=== PATIENT | male | born 1995 | race Caucasian/White ===

== ENCOUNTER 2021-03-27 19:10 | Emergency (ER) | payer OTHER, MEDICARE, MEDICAID, SELFPAY ==
[2018-10-02 09:03] VITALS: BMI 37.3
[2021-03-27 19:11] VITALS: BP 134/86; PULSE 84; RESP 15; TEMP 36.8; O2SAT 96; BMI 35.2
--- NOTE | 2021-03-27 20:50 | RAD_ITS ---
STUDY: X-RAY - RIGHT FEMUR REASON FOR STUDY: Male, 26 years old. Fall TECHNIQUE: 4 view(s) of the femur. COMPARISON: None. FINDINGS: Normal visualized femur. Normal visualized soft tissue structure. RAD/Femur Min 2 Views IMPRESSION: Normal x-ray examination of the femur. Electronically Signed: Anuel Feldman MD at 21:23 EDT Tel , Service support ,
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
--- NOTE | 2021-03-27 20:56 | RAD_ITS ---
STUDY: X-RAY - PELVIS REASON FOR EXAM: Male, 26 years old. Fall TECHNIQUE: One view of the pelvis was obtained. COMPARISON: None. FINDINGS: No acute fracture, dislocation or osseous destruction. No significant joint space narrowing. No significant productive changes. No significant soft tissue swelling. Metallic densities inferior to the right pubic symphysis may be external to the patient. IMPRESSION: Intact pelvis. Electronically Signed: Anuel Feldman MD at 21:27 EDT Tel , Service support , RAD/Pelvis 1 or 2 Views
[2021-03-27] MEDS: Ibuprofen 400 MG Tablet 800 MG PO (20:59)
== END 2021-03-27 21:50 | disposition home or self-care (01) ==
PROVIDERS: Emergency Provider Emergency Medicine; PCP Internal Medicine
DX: S70.01XA Contusion of right hip, initial encounter (principal); V19.9XXA Pedal cyclist (driver) (passenger) injured in unspecified traffic accident, initial encounter; Y93.55 Activity, bike riding; Y92.9 Unspecified place or not applicable; Y99.9 Unspecified external cause status; M54.9 Dorsalgia, unspecified; G89.29 Other chronic pain; Q05.4 Unspecified spina bifida with hydrocephalus; N31.9 Neuromuscular dysfunction of bladder, unspecified; G62.9 Polyneuropathy, unspecified; K21.9 Gastro-esophageal reflux disease without esophagitis; F10.21 Alcohol dependence, in remission; Z79.899 Other long term (current) drug therapy; Z87.891 Personal history of nicotine dependence
CPT/HCPCS: 72170; 73552; 99284

== ENCOUNTER → 2021-06-15 09:33 | Outpatient (CLI) | payer OTHER, MEDICARE, MEDICAID, SELFPAY ==
[2021-06-15 12:13] LABS: Absolute Lymphocyte Count 1.51 X10^3/uL (0.83-4.51); Absolute Neutrophil Count 2.8 X10^3/uL (2.0-7.7); Basophil# 0.02 X10^3/uL; Basophil% 0.4 % (0-1); Hematocrit 43.2 % (40-54); Hemoglobin 14.2 g/dL (13.0-16.5); Lymphocyte # 1.51 X10^3/ul (0.83-4.51); Lymphocyte % 30.2 % (19-41); Mean Corp Hgb Conc 32.9 g/dL (32-36); Mean Corpuscular Volume 91.3 fL (80-94); Mean Platelet Vol. 9.9 fl (6.2-12.0); Monocyte# 0.46 X10^3/uL; Monocyte% 9.2 % (0-10); NRBC Flagged by Analyzer 0 % (0-5); Neutrophil # 2.79 X10^3/uL (2.7-7.7); Neutrophil % 55.8 % (47-70); Platelet Count 351 K/mm3 (150-450); RBC Distribution Width CV 12.1 % (11.6-14.6); RBC Distribution Width SD 40.1 fl (35.1-43.9); Red Blood Count 4.73 M/mm3 (4.6-6.2)
[2021-06-15 12:28] LABS: ALB/GLOB Ratio 1.1 RATIO (0.9-2.4); AST(SGOT) 30 U/L (15-37); Alanine Aminotransfer ALT/SGPT 84 U/L (16-61); Albumin, Serum 3.8 g/dL (3.2-5.0); Alkaline Phosphatase 89 U/L (45-117); Anion Gap 6 (5-15); BUN 13 mg/dL (7-18); BUN/Creat Ratio 16.4 RATIO (10-20); Calcium,Total 9.1 mg/dL (8.5-10.1); Chloride 105 mmol/L (98-107); Cholesterol 156 mg/dL (200); Creatinine, Serum 0.79 mg/dL (0.70-1.30); EST Glomerular Filtration Rate 127 mL/min (>60); Est Glom Filt Rate - Afr Amer 153 mL/min (>60); Globulin 3.4 g/dL (2.2-4.2); Glucose 98 mg/dL (74-106); High Density Lipoprotein 34 mg/dL; Potassium 4.2 mmol/L (3.5-5.1); Protein, Total 7.2 g/dL (6.4-8.2); Sodium Level 139 mmol/L (136-145); Triglycerides 216 mg/dL; Very Low Density Lipoprotein 43 mg/dL (5-40)
[2021-06-15 12:59] LABS: Hemoglobin A1c 4.8 % (3.8-5.6)
== END ==
PROVIDERS: PCP Internal Medicine; Referring Provider Internal Medicine; Visit Provider Internal Medicine
DX: E66.9 Obesity, unspecified (principal); I10 Essential (primary) hypertension
CPT/HCPCS: 36415; 80053; 80061; 83036; 85025

== ENCOUNTER 2021-07-02 16:00 | Outpatient (RCR) | payer OTHER, MEDICARE, MEDICAID, SELFPAY ==
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
--- NOTE | 2021-09-10 14:05 | HP.PT.NRP ---
YVONNE GARCIA was seen in my office for initial evaluation on 06/12/21. The following Plan of Care was established for this patient: Initial Frequency: 2-3x /Week Initial Duration: 4-6 Weeks Patient/Client Instruction: Educate patient on: Condition, Plan of Care, Risk Factors For the Purpose of:: To improve self management Therapeutic Exercise to Include: Strength training, Endurance training, Balance training, Coordination, Body mechanics, Postural training, Gait and locomotor training, Neuromotor development, Dynamic Lumbar Stabilization For the Purpose of:: To improve muscle performance and motor function, To increase tolerance to activity/condition/position, To improve ability of physical actions for home/community/work/leisure, To improve gait and locomotor functions, To improve safety This patient was last seen in our office 07/02/21. Pertinent comments regarding their Physical therapy will appear below: This patient has not returned to Physical Therapy and is appropriate to return to MD for further follow-up as needed. At this point I will be discontinuing this patient from physical therapy. I would be happy to see this patient again in the future if found appropriate by the physician. Thank you! Cadence Browning, PT, Cert MDT Balance/Gait/Functional tests - Balance/Special Test Scores Lower Extremity Functional Score: 42
== END 2021-07-02 19:00 | disposition home or self-care (01) ==
LOC: PT 16:00
PROVIDERS: PCP Internal Medicine
DX: Q05.9 Spina bifida, unspecified (principal)
CPT/HCPCS: 97110; 97162

== ENCOUNTER 2021-08-29 00:42 | Emergency (ER) | payer OTHER, MEDICARE, MEDICAID, SELFPAY ==
[2021-08-29 00:43] VITALS: BP 140/100; PULSE 99; RESP 20; TEMP 36.6; O2SAT 100; BMI 46.1
--- NOTE | 2021-08-29 01:31 | CT_ITS ---
STUDY: CT ABDOMEN AND PELVIS WITH CONTRAST REASON FOR EXAM: Male, 26 years old. abdominal pain. History of spina bifida with neurogenic bladder. Self catheterizes. Reportedly the appendix surgically altered. History of multiple surgeries. RADIATION DOSAGE (If Supplied By Facility): CTDIvol = ( 11.74 ) mGy, DLP = ( 1343.36 ) mGycm TECHNIQUE: Transaxial images were obtained from the dome of the diaphragm to the symphysis pubis with oral contrast. 100 mL Isovue 370 intravenous contrast was administered. Sagittal and coronal images were reconstructed. Individualized dose optimization techniques were used for this CT. COMPARISON: None. FINDINGS: The visualized lung bases are unremarkable. The visualized portions of the heart are within normal limits. Normal liver. Normal gallbladder and extrahepatic biliary system. Normal spleen. Normal pancreas. Normal bilateral adrenal glands. Normal right kidney. 1.3 cm cyst superior pole left kidney which does not represent a simple cyst. Normal visualized stomach. Normal small intestine. Normal colon. The appendix is visualized and appears normal. Normal abdominal aorta. Normal inferior vena cava. Normal retroperitoneum. No intra-abdominal free air. Small amount of free fluid in the right inferior abdomen with moderate free fluid in the inferior pelvis. Distal aspect of a right ventriculoperitoneal shunt terminates in the right lower abdomen. Thickened bladder wall suggestive of a neurogenic bladder described in the history. medical cost consultant in the region of the prostate gland with the catheter located in right inguinal region. Normal abdominal wall. Spinal canal and the lower lumbar sacral spine. Absence of the posterior elements in the lower lumbar sacral spine. CT/Abdomen/Pelvis WITH Contrast IMPRESSION: Fluid in the inferior abdomen and pelvis which may be related to infection or inflammation. Comparison to prior studies would be helpful when available. Thickened bladder wall compatible with history of neurogenic bladder. Cystitis is a consideration. No intra-abdominal free air. Cyst superior pole left kidney. Correlate with prior studies to assess stability. Findings of spina bifida. Electronically Signed: Mane Rossi MD at 3:58 EST , Service support ,
--- NOTE | 2021-08-29 01:33 | ED.VIS.GI ---
HPI HPI - GI History of Present Illness Chief Complaint: Constipation Narrative Narrative: 26-year-old male presenting with abdominal pain. He describes it is more central in his abdomen. Patient has a history of spina bifida and neurogenic bladder and bowel. He has a history of constipation and alternates with diarrhea. He recently switched from [employer] to Dr. Rodriguez who is going to a colonoscopy in the next month. Patient states that he does not typically have this much pain and this woke him up from sleep. He states he got nauseous and a little bit sweaty which which resolved. He now has just the pain which is also improving. He states he has not had a significant bowel movement in 2 days but did have some diarrhea earlier which is not atypical. He has not had a fever. He states he is had over 20 abdominal surgeries and a he has a Mercado stoma in his abdomen that he uses to flush his bowel to help him defecate this was created by using his appendix. He does defecate rectally. Patient has another stoma called a Mitrofanoff which is typically made with appendiceal tissue however due to his previous stoma another piece of bowel was used in the tissue to create a conduit from the stoma to the bladder. He does self cath here. But states he gets very confused when he has urinary tract infections and he does not feel that way. [facility] Medical History Alcoholism Anxiety and depression Chronic back pain Chronic constipation GERD (gastroesophageal reflux disease) Hydrocephalus Myelomeningocele Neurogenic bladder Neuropathy Right foot pain Spina bifida Home Medications Handicap Placard #1 ea 10/02/18 [Rx Last Taken Unknown] docusate sodium 100 mg capsule 100 mg PO BID 10/02/18 [History Last Taken Unknown] multivitamin 1 cap PO DAILY 10/02/18 [History Last Taken Unknown] nitrofurantoin macrocrystal 50 mg capsule 50 mg PO QHS 10/02/18 [History Last Taken Unknown] oxybutynin 3.9 mg/24 hr semiweekly transdermal patch 1 patch TRANSDERMAL 2XW 10/02/18 [History Last Taken Unknown] polyethylene glycol 3350 17 gram/dose oral powder 17 g PO DAILY g 10/02/18 [History Last Taken Unknown] sildenafil 25 mg tablet 25 mg PO DAILY PRN 10/02/18 [History Last Taken Unknown] baclofen 20 mg tablet 20 mg PO BID 06/15/21 [History Last Taken Unknown] escitalopram oxalate 10 mg tablet 10 mg PO DAILY #90 tab 06/15/21 [Rx Last Taken Unknown] lactobacillus combination no.4 3 billion cell capsule 3,000 mmu cells PO DAILY 06/15/21 [History Last Taken Unknown] magnesium 200 mg tablet 200 mg PO DAILY 06/15/21 [History Last Taken Unknown] melatonin 5 mg capsule 5 mg PO DAILY 06/15/21 [History Last Taken Unknown] zinc 50 mg tablet 50 mg PO DAILY 06/15/21 [History Last Taken Unknown] metoprolol succinate 50 mg tablet,extended release 24 hr 50 mg PO DAILY #60 tab 08/27/21 [Rx Last Taken Unknown] ciprofloxacin 250 mg PO Q12H 7 Days #35 ml 08/29/21 [Rx Last Taken Unknown] losartan 50 mg PO DAILY 08/29/21 [History Last Taken Unknown] Allergy/AdvReac Type Severity Reaction Status Date / Time lactose Allergy Mild Diarrhea Verified 08/29/21 00:50 cefdinir [From Omnicef] Allergy unknown Verified 08/29/21 00:50 cephalexin [From Keflex] Allergy Unknown Verified 08/29/21 00:50 latex Allergy Unknown Verified 08/29/21 00:50 morphine Allergy Unknown Verified 08/29/21 00:50 Family History Father Hypertension Heart disease Arthritis Surgical History bilateral hydocele repair closure of the spine cystourethroscopy estropia repair H/O hernia repair Mercado Stoma mitrofanoff placement of [place] reservoir removal of thiersch wire revision of shunt 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 Status post implantation of artificial urinary sphincter thiersch wire replacement [place] teeth extracted Social History Smoking Status: Never smoker Tobacco: How many years used: 1 how long ago did patient quit smokin alcohol intake: current alcohol intake frequency: holidays/special occasions only what type of physical activity do you participate in: aerobics and weight training ROS ROS ED Constitutional Constitutional ED: Reports sweats; Denies chills or fever(s) ENT ENT ED: Denies rhinorrhea Cardiovascular Cardiovascular: Denies chest pain or palpitations Respiratory/Chest Respiratory/Chest: Denies cough or dyspnea Gastrointestinal Gastrointestinal: Reports abdominal pain, constipation, diarrhea and nausea Genitourinary Genitourinary ED: Denies dysuria or hematuria Musculoskeletal Musculoskeletal: Denies arthralgias or myalgias Neurologic Neurologic: Denies headache(s) or weakness EXAM Physical Exam Const Vital Signs: 08/29/21 00:43 08/29/21 02:38 08/29/21 05:36 Temperature 97.8 F Temperature Source Oral Pulse Rate 99 97 105 H Respiratory Rate 20 H 16 18 Blood Pressure 140/100 H 122/83 H 118/70 Blood Pressure Mean 113 96 86 Pulse Ox 100 95 96 Oxygen Delivery Method Room Air Room Air Room Air Positive obese General Appearance ED: NAD; Negative for pallor Nutritional Appearance: obese HEENT Reports moist mucous membranes normocephalic and atraumatic Eyes PERRL and EOMs intact bilaterally Resp clear to auscultation bilaterally GI GI Narrative: Generalized abdominal tenderness. Neuro no sensory deficits noted Sensorium / Orientation: alert, oriented to person, oriented to place and oriented to time Motor Exam: strength 5/5 throughout Psych mental status grossly normal and thought process normal Skin General Skin Exam: Negative for jaundice or pallor MDM MDM MDM Narrative Medical decision making narrative: Patient's CBC does not show any leukocytosis. Hemoglobin hematocrit are stable. Electrolytes are normal as well as LFTs and lipase. His creatinine is 2.18 which was 0.79 2 months ago. This does not appear to be prerenal azotemia. Patient's urinalysis is positive for infection. Patient is allergic to cephalosporins. He states he usually gets Bactrim but I will hold tested YANELI. He states that Cipro has worked for him in the past. He will be given an IV dose of this. Urine is sent for culture. CT of the abdomen pelvis with p.o. and IV contrast does show some fluid in the pelvis which is nonspecific for infection or inflammation but could be either. Given that he has no leukocytosis and his vital signs are stable it is unclear what to make of this. The patient has no previous studies to compare in our system. He was initially given a liter of IV fluids. Since he had a CT of the pelvis with IV contrast I will give another liter of fluids and recheck his creatinine. Recheck of the patient's creatinine shows that it is now 1.35. Patient was discussed with Dr. Erwin. He will put on Cipro outpatient. I did discuss with her I sent a urine culture. She will recheck his creatinine. Patient is also to follow-up with Dr. Rodriguez as he has missed 2 visits with him. Patient is discharged home in stable condition. Impression: 1. Abdominal pain 2. Bladder infection 3. Constipation Lab Data Labs: Laboratory Results - last 24 hr 08/29/21 08/29/21 08/29/21 01:42 01:42 02:58 WBC 9.2 RBC 4.82 Hgb 14.6 Hct 43.7 MCV 90.7 MCH 30.3 MCHC 33.4 RDW Std Deviation 38.7 RDW Coeff of Levi 11.7 Plt Count 345 MPV 9.3 Immature Gran % (Auto) 0.200 Neut % (Auto) 79.9 H Lymph % (Auto) 10.8 L [place] % (Auto) 7.5 Eos % (Auto) 1.4 Baso % (Auto) 0.2 Absolute Neuts (auto) 7.4 Absolute Lymphs (auto) 1.00 Nucleated RBC % 0 Sodium 141 Potassium 4.3 Chloride 107 Carbon Dioxide 28.0 Anion Gap 6 BUN 20 H Creatinine 2.18 H Estim Creat Clear Calc 55.17 Est GFR (MDRD) Af Amer 47 L Est GFR (MDRD) Non-Af 39 L BUN/Creatinine Ratio 9.2 L Glucose 126 H Calcium 8.9 Total Bilirubin 1.00 AST 32 ALT 85 H Alkaline Phosphatase 85 Total Protein 7.2 Albumin 3.6 Globulin 3.6 Albumin/Globulin Ratio 1.0 Lipase 56 L Urine Color Yellow Urine Clarity Cloudy Urine pH 5.0 Ur Specific [place] 1.025 Urine Protein 30 H Urine Glucose (UA) Normal Urine Ketones 5 H Urine Occult Blood 25 H Urine Nitrite Positive H Urine Bilirubin Negative Urine Urobilinogen 1 H Ur Leukocyte Esterase 500 H Urine RBC 10-25 SEEN Urine WBC >100 SEEN Ur Squamous Epith Cells 0 SEEN Urine Bacteria 3+ Hyaline Casts 0-5 SEEN Urine Mucus RARE 08/29/21 06:09 WBC RBC Hgb Hct MCV MCH MCHC RDW Std Deviation RDW Coeff of Levi Plt Count MPV Immature Gran % (Auto) Neut % (Auto) Lymph % (Auto) [place] % (Auto) Eos % (Auto) Baso % (Auto) Absolute Neuts (auto) Absolute Lymphs (auto) Nucleated RBC % Sodium 139 Potassium 4.0 Chloride 109 H Carbon Dioxide 24.0 Anion Gap 6 BUN 19 H Creatinine 1.35 H Estim Creat Clear Calc 89.09 Est GFR (MDRD) Af Amer 83 Est GFR (MDRD) Non-Af 68 BUN/Creatinine Ratio 14.1 Glucose 114 H Calcium 8.1 L Total Bilirubin AST ALT Alkaline Phosphatase Total Protein Albumin Globulin Albumin/Globulin Ratio Lipase Urine Color Urine Clarity Urine pH Ur Specific [place] Urine Protein Urine Glucose (UA) Urine Ketones Urine Occult Blood Urine Nitrite Urine Bilirubin Urine Urobilinogen Ur Leukocyte Esterase Urine RBC Urine WBC Ur Squamous Epith Cells Urine Bacteria Hyaline Casts Urine Mucus Radiography Diagnostic Testing: Clinical Impression(s) from Imaging Studies Abdomen/Pelvis CT 08/29/21 01:31 IMPRESSION: Fluid in the inferior abdomen and pelvis which may be related to infection or inflammation. Comparison to prior studies would be helpful when available. Thickened bladder wall compatible with history of neurogenic bladder. Cystitis is a consideration. No intra-abdominal free air. Cyst superior pole left kidney. Correlate with prior studies to assess stability. Findings of spina bifida. Electronically Signed: Mane Rossi MD at 3:58 EST , Service support , Discharge Plan Triage Chief Complaint: Constipation ED Provider: Jacoby Griffin Dx/Rx/DC Orders Instructions: ED Bladder Infection, Male (Adult), ED Abdominal Pain Unkn Cause Male... Prescriptions: New ciprofloxacin 500 mg/5 mL suspension,microcapsule recon 250 mg PO Q12H 7 Days Qty: 35 RF: 0 No Action polyethylene glycol 3350 [Miralax] 17 gram/dose powder 17 g PO DAILY RF: 0 nitrofurantoin macrocrystal [Macrodantin] 50 mg capsule 50 mg PO QHS RF: 0 multivitamin capsule capsule 1 cap PO DAILY RF: 0 Oxytrol 3.9 mg/24 hr patch semiweekly 1 patch Transdermal 2XW RF: 0 docusate sodium [Colace] 100 mg capsule 100 mg PO BID RF: 0 sildenafil [Viagra] 25 mg tablet 25 mg PO DAILY PRN (Reason: other) RF: 0 (DME) Handicap Placard Qty: 1 RF: 0 baclofen 20 mg tablet 20 mg PO BID RF: 0 melatonin 5 mg capsule 5 mg PO DAILY RF: 0 zinc 50 mg tablet 50 mg PO DAILY RF: 0 Probiotic 3 billion cell capsule 3,000 mmu cells PO DAILY RF: 0 magnesium 200 mg tablet 200 mg PO DAILY RF: 0 escitalopram oxalate 10 mg tablet 10 mg PO DAILY Qty: 90 RF: 3 metoprolol succinate 50 mg tablet extended release 24 hr 50 mg PO DAILY Qty: 60 RF: 1 losartan 50 mg tablet 50 mg PO DAILY RF: 0 Primary Care Provider: Sruthi Erwin Referrals: Sruthi Erwin MD [Primary Care Provider] - Thomas Rodriguez DO [STAFF PHYSICIAN] - Disposition Disposition: Home, Self Care
[2021-08-29] MEDS: Ketorolac 15 MG/ML Vial IV (01:44)
[2021-08-29] MEDS: 0.9% Normal Saline 1,000 ML 1000 ML IV (01:44)
[2021-08-29 01:52] LABS: Absolute Neutrophil Count 7.4 X10^3/uL (2.0-7.7); Basophil# 0.02 X10^3/uL; Basophil% 0.2 % (0-1); Eosinophil# 0.13 X10^3/uL; Eosinophils% 1.4 % (0-5); Hematocrit 43.7 % (40-54); Hemoglobin 14.6 g/dL (13.0-16.5); Lymphocyte % 10.8 % (19-41); Mean Corp Hgb Conc 33.4 g/dL (32-36); Mean Corpuscular Hgb 30.3 pg (27.0-32.0); Mean Corpuscular Volume 90.7 fL (80-94); Mean Platelet Vol. 9.3 fl (6.2-12.0); Monocyte# 0.69 X10^3/uL; Monocyte% 7.5 % (0-10); NRBC Flagged by Analyzer 0 % (0-5); Neutrophil # 7.37 X10^3/uL (2.7-7.7); Neutrophil % 79.9 % (47-70); Platelet Count 345 K/mm3 (150-450); RBC Distribution Width CV 11.7 % (11.6-14.6); RBC Distribution Width SD 38.7 fl (35.1-43.9); Red Blood Count 4.82 M/mm3 (4.6-6.2); White Blood Count 9.2 K/mm3 (4.4-11.0)
[2021-08-29 02:16] LABS: AST(SGOT) 32 U/L (15-37); Alanine Aminotransfer ALT/SGPT 85 U/L (16-61); Albumin, Serum 3.6 g/dL (3.2-5.0); Alkaline Phosphatase 85 U/L (45-117); Anion Gap 6 (5-15); BUN 20 mg/dL (7-18); BUN/Creat Ratio 9.2 RATIO (10-20); Calcium,Total 8.9 mg/dL (8.5-10.1); Chloride 107 mmol/L (98-107); Creatinine, Serum 2.18 mg/dL (0.70-1.30); EST Glomerular Filtration Rate 39 mL/min (>60); Est Glom Filt Rate - Afr Amer 47 mL/min (>60); Estimated Creatinine Clearance 55.17 ml/min; Globulin 3.6 g/dL (2.2-4.2); Glucose 126 mg/dL (74-106); Lipase 56 U/L (73-393); Potassium 4.3 mmol/L (3.5-5.1); Protein, Total 7.2 g/dL (6.4-8.2); Sodium Level 141 mmol/L (136-145)
[2021-08-29 02:38] VITALS: BP 122/83; PULSE 97; RESP 16; O2SAT 95
[2021-08-29 03:05] LABS: Squamous Epithelial Cells - UA 0 SEEN /hpf (0-5)
[2021-08-29 03:17] LABS: Color, Urine Yellow (Yellow); Glucose, Dipstick Normal (Normal); Ketone-Dipstick 5 mg/dl (Negative); Leukocyte Esterase-Dipstick 500 /ul (Negative); Nitrite-Dipstick Positive (Negative); Occult Blood-Urine 25 /ul (Negative); Protein-Dipstick 30 mg/dl (Negative); Specific Gravity, Urine 1.025 (1.002-1.030); Urine Bilirubin Dipstick Negative (Negative); Urine Clarity Cloudy (Clear); Urine Urobilinogen 1 mg/dl (Normal)
[2021-08-29 03:43] LABS: Bacteria 3+ /hpf (None Seen); Red Blood Cells-Urine 10-25 SEEN /hpf (0-5); White Blood Cells >100 SEEN /hpf (0-5)
[2021-08-29 03:44] LABS: Mucous, Urine RARE /hpf (<or=2+)
[2021-08-29 03:45] LABS: Hyaline Cast 0-5 SEEN /lpf (0-5)
[2021-08-29] MEDS: 0.9% Normal Saline 1,000 ML 250 ML IV (04:34)
[2021-08-29 05:36] VITALS: BP 118/70; PULSE 105; RESP 18; O2SAT 96
[2021-08-29] MEDS: Ciprofloxacin 400 MG/200 ML BAG 200 MG IV (06:08)
[2021-08-29 06:38] LABS: Anion Gap 6 (5-15); BUN 19 mg/dL (7-18); BUN/Creat Ratio 14.1 RATIO (10-20); Calcium,Total 8.1 mg/dL (8.5-10.1); Chloride 109 mmol/L (98-107); Creatinine, Serum 1.35 mg/dL (0.70-1.30); EST Glomerular Filtration Rate 68 mL/min (>60); Est Glom Filt Rate - Afr Amer 83 mL/min (>60); Estimated Creatinine Clearance 89.09 ml/min; Glucose 114 mg/dL (74-106); Sodium Level 139 mmol/L (136-145)
[2021-08-29 07:07] VITALS: BP 95/67; PULSE 102; RESP 16
== END 2021-08-29 07:46 | disposition home or self-care (01) ==
PROVIDERS: Emergency Provider Student in an Organized Health Care Education/Training Program; PCP Internal Medicine
DX: R10.9 Unspecified abdominal pain (principal); N30.90 Cystitis, unspecified without hematuria; K59.00 Constipation, unspecified; Q05.4 Unspecified spina bifida with hydrocephalus; N31.9 Neuromuscular dysfunction of bladder, unspecified; K21.9 Gastro-esophageal reflux disease without esophagitis; F32.A Depression, unspecified; F41.9 Anxiety disorder, unspecified; Z79.899 Other long term (current) drug therapy; Z88.1 Allergy status to other antibiotic agents
CPT/HCPCS: 74177; 80048; 80053; 81001; 83690; 85025; 87077; 87086; 87088; 87186; 96361; 96365; 96375; 99285; J7030; Q9967; A4216; J0744

== ENCOUNTER → 2021-08-30 | Outpatient (CLI) | payer OTHER, MEDICARE, MEDICAID, SELFPAY | END | disposition home or self-care (01) | LOC: LABSPEC 08:20 | PROVIDERS: PCP Internal Medicine; Referring Provider Physician Assistant; Visit Provider Physician Assistant | DX: Z11.52 Encounter for screening for COVID-19 (principal) | CPT/HCPCS: 87635; U0005; U0003 ==

== ENCOUNTER 2021-10-17 14:41 | Outpatient (CLI) | payer OTHER, MEDICARE, MEDICAID, SELFPAY ==
[2021-10-17 16:51] LABS: ALB/GLOB Ratio 0.9 RATIO (0.9-2.4); AST(SGOT) 11 U/L (15-37); Alanine Aminotransfer ALT/SGPT 35 U/L (16-61); Albumin, Serum 3.5 g/dL (3.2-5.0); Alkaline Phosphatase 103 U/L (45-117); Anion Gap 7 (5-15); BUN 16 mg/dL (7-18); BUN/Creat Ratio 17.6 RATIO (10-20); Calcium,Total 9.3 mg/dL (8.5-10.1); Chloride 107 mmol/L (98-107); Creatinine, Serum 0.91 mg/dL (0.70-1.30); EST Glomerular Filtration Rate 107 mL/min (>60); Est Glom Filt Rate - Afr Amer 130 mL/min (>60); Glucose 108 mg/dL (74-106); Potassium 3.8 mmol/L (3.5-5.1); Protein, Total 7.5 g/dL (6.4-8.2); Sodium Level 142 mmol/L (136-145)
== END 2021-10-17 23:59 | disposition short-term general hospital (02) ==
LOC: BIMLAB 14:42
PROVIDERS: PCP Internal Medicine; Visit Provider Internal Medicine
DX: R19.7 Diarrhea, unspecified (principal)
CPT/HCPCS: 36415; 80053

== ENCOUNTER 2021-10-18 11:26 | Outpatient (CLI) | payer OTHER, MEDICARE, MEDICAID, SELFPAY | END 2021-10-18 23:59 | disposition short-term general hospital (02) | LOC: LABSPEC 11:28 | PROVIDERS: PCP Internal Medicine; Referring Provider Internal Medicine; Visit Provider Internal Medicine | DX: R19.7 Diarrhea, unspecified (principal) | CPT/HCPCS: 87493 ==

== ENCOUNTER 2021-10-30 17:24 | Emergency (ER) | payer OTHER, MEDICARE, MEDICAID, SELFPAY ==
[2021-10-30 17:24] VITALS: BP 155/102; PULSE 107; RESP 20; TEMP 36.6; O2SAT 97; BMI 36.6
[2021-10-30 17:27] VITALS: BP 155/102; PULSE 107; RESP 20; TEMP 36.6; O2SAT 97
--- NOTE | 2021-10-30 18:12 | EX.ED.DYSGE1 ---
HPI History of Present Illness Chief Complaint: Complaint Informant: patient Onset/Context/Timing Onset: Weeks (1) Context: Gradual Onset Timing: Continuous Quality: Burning Location: Low back and suprapubic area Worsened by: Urination Relieved by: Nothing Narrative Narrative: Patient presents with burning with urination, and low back pain that has been getting worse over the past week. Patient states he recently completed a course of vancomycin for C. difficile colitis. Patient states he still has some diarrhea. Patient states he is having some burning with urination as well. Patient also states he is having some mucus in his urine. Patient has a history of spina bifida and has to use a tube in his suprapubic area to urinate. Patient states he also has to administer fluid into his colon to have a bowel movement. Patient states that he has been having some incontinence with the diarrhea recently. [facility] Medical History Abdominal pain Alcoholism Anxiety and depression Chronic back pain Chronic constipation Diarrhea GERD (gastroesophageal reflux disease) Hydrocephalus Myelomeningocele Neurogenic bladder Neuropathy Right foot pain Spina bifida Weakness of both lower extremities Home Medications Handicap Placard #1 ea 10/02/18 [Rx Last Taken Unknown] docusate sodium 100 mg capsule 100 mg PO BID 10/02/18 [History Last Taken Unknown] multivitamin 1 cap PO DAILY 10/02/18 [History Last Taken Unknown] oxybutynin 3.9 mg/24 hr semiweekly transdermal patch 1 patch TRANSDERMAL 2XW 10/02/18 [History Last Taken Unknown] polyethylene glycol 3350 17 gram/dose oral powder 17 g PO DAILY g 10/02/18 [History Last Taken Unknown] sildenafil 25 mg tablet 25 mg PO DAILY PRN 10/02/18 [History Last Taken Unknown] baclofen 20 mg tablet 20 mg PO BID 06/15/21 [History Last Taken Unknown] lactobacillus combination no.4 3 billion cell capsule 3,000 mmu cells PO DAILY 06/15/21 [History Last Taken Unknown] magnesium 200 mg tablet 200 mg PO DAILY 06/15/21 [History Last Taken Unknown] melatonin 5 mg capsule 5 mg PO DAILY 06/15/21 [History Last Taken Unknown] psyllium husk 0.52 gram capsule 1.04 g PO DAILY PRN #60 cap 08/30/21 [Rx Last Taken Unknown] ondansetron HCl 4 mg tablet 4 mg PO Q8H PRN #30 tab 10/01/21 [Rx Last Taken Unknown] escitalopram oxalate 10 mg tablet 10 mg PO DAILY #90 tab 10/26/21 [Rx Last Taken Unknown] sulfamethoxazole-trimethoprim 1 tab PO BID #6 tablet 10/30/21 [Rx Last Taken Unknown] vancomycin 125 mg PO Q6H 10 Days #40 cap 10/30/21 [Rx Last Taken Unknown] Allergy/AdvReac Type Severity Reaction Status Date / Time lactose Allergy Mild Diarrhea Verified 10/30/21 17:28 cefdinir [From Omnicef] Allergy unknown Verified 10/30/21 17:28 cephalexin [From Keflex] Allergy Unknown Verified 10/30/21 17:28 latex Allergy Unknown Verified 10/30/21 17:28 morphine Allergy Unknown Verified 10/30/21 17:28 Family History Father Hypertension Heart disease Arthritis Surgical History bilateral hydocele repair closure of the spine cystourethroscopy estropia repair H/O hernia repair Intracranial shunt Mercado Stoma mitrofanoff placement of [place] reservoir removal of thiersch wire revision of shunt 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 Status post implantation of artificial urinary sphincter thiersch wire replacement [place] teeth extracted Social History Smoking Status: Never smoker Tobacco: How many years used: 1 how long ago did patient quit smokin alcohol intake: former year quit: 12/02 details: reports recovering alcoholic what type of physical activity do you participate in: aerobics and weight training ROS ROS ED Constitutional Constitutional ED: Reports chills, fever(s) and subjective Eyes Eyes: Denies blurry vision or change in vision ENT ENT ED: Denies rhinorrhea or sore throat Cardiovascular Cardiovascular: Denies chest pain or palpitations Respiratory/Chest Respiratory/Chest: Denies cough or dyspnea Gastrointestinal Gastrointestinal: Denies nausea or vomiting Genitourinary Genitourinary ED: Reports dysuria; Denies hematuria Musculoskeletal Musculoskeletal: Reports arthralgias and back pain; Denies neck pain Integumentary Denies abscess or rash Neurologic Neurologic: Reports headache(s); Denies weakness Allergic/Immunologic Allergic/Immunologic ED: Denies mouth swelling or urticaria EXAM Physical Exam Const Vital Signs: 10/30/21 17:24 10/30/21 17:27 Temperature 97.9 F 97.9 F Temperature Source Temporal Temporal Pulse Rate 107 H 107 H Respiratory Rate 20 H 20 H Blood Pressure 155/102 H 155/102 H Blood Pressure Mean 119 119 Pulse Ox 97 97 Oxygen Delivery Method Room Air Room Air Positive well nourished and well developed General Appearance ED: well developed HEENT Reports moist mucous membranes Neck supple and no JVD Resp normal respiratory effort and clear to auscultation bilaterally Cardio regular rate, regular rhythm and no murmurs GI normal to inspection, nondistended, normoactive bowel sounds and non-tender Palpation: soft Extremity normal to inspection General Extremety ED: Negative for edema or tenderness General Extremity: Negative for edema Neuro oriented x3, CN's II-XII intact bilaterally and no sensory deficits noted Sensorium / Orientation: alert Motor Exam: strength 5/5 throughout Psych mental status grossly normal Skin no rashes or lesions noted MDM MDM MDM Narrative Medical decision making narrative: CBC was within normal limits. Comprehensive metabolic profile was within normal limits. Urinalysis shows a leukocyte esterase 500 with positive nitrates. Occult blood was 50. There were 5-10 red blood cells and greater than 100 white blood cells. There is 3+ bacteria. Urine culture was ordered. Stool for C. difficile was ordered. This will not be done until tomorrow. Patient was given a dose of Bactrim here. Patient was given a prescription for Bactrim. Patient was also given a prescription for oral vancomycin. Patient was instructed to follow-up with his primary care physician in 3 to 5 days. If his stool for C. difficile is positive, he should start the oral vancomycin when his Bactrim is done. If his stool for C. difficile is negative, he should not fill the oral vancomycin prescription. Patient and his mother understood and were agreeable with the plan. All questions were answered. Lab Data Attestation: I reviewed the patient's lab results. Labs: Laboratory Results - last 24 hr 10/30/21 10/30/21 10/30/21 18:00 18:00 18:28 WBC 10.4 RBC 4.46 L Hgb 12.7 L Hct 39.3 L MCV 88.1 MCH 28.5 MCHC 32.3 RDW Std Deviation 43.9 RDW Coeff of Levi 13.6 Plt Count 424 MPV 10.1 Immature Gran % (Auto) 0.400 Neut % (Auto) 68.8 Lymph % (Auto) 19.2 [place] % (Auto) 6.3 Eos % (Auto) 5.0 Baso % (Auto) 0.3 Absolute Neuts (auto) 7.2 Absolute Lymphs (auto) 1.99 Nucleated RBC % 0 Sodium 139 Potassium 4.6 Chloride 106 Carbon Dioxide 26.0 Anion Gap 7 BUN 19 H Creatinine 0.91 Estim Creat Clear Calc 136.20 Est GFR (MDRD) Af Amer 130 Est GFR (MDRD) Non-Af 108 BUN/Creatinine Ratio 20.9 H Glucose 81 Calcium 9.2 Total Bilirubin 0.80 AST 37 ALT 45 Alkaline Phosphatase 94 Total Protein 7.4 Albumin 3.7 Globulin 3.7 Albumin/Globulin Ratio 1.0 Urine Color Yellow Urine Clarity Cloudy Urine pH 7.0 Ur Specific [place] 1.020 Urine Protein 30 H Urine Glucose (UA) Normal Urine Ketones Negative Urine Occult Blood 50 H Urine Nitrite Positive H Urine Bilirubin Negative Urine Urobilinogen Normal Ur Leukocyte Esterase 500 H Urine RBC 5-10 SEEN Urine WBC >100 SEEN Ur Squamous Epith Cells 0 SEEN Urine Bacteria 3+ Urine Mucus 0 SEEN Discharge Plan Triage Chief Complaint: Complaint ED Provider: Alonso John Dx/Rx/DC Orders Clinical Impression: Urinary tract infection Instructions: ED Bladder Infection, Male (Adult) Prescriptions: New sulfamethoxazole-trimethoprim [sulfamethoxazole-trimethoprim] 1 TABLET tablet 1 tab PO BID Qty: 6 RF: 0 vancomycin 125 mg capsule 125 mg PO Q6H 10 Days Qty: 40 RF: 0 No Action polyethylene glycol 3350 [Miralax] 17 gram/dose powder 17 g PO DAILY RF: 0 multivitamin capsule capsule 1 cap PO DAILY RF: 0 Oxytrol 3.9 mg/24 hr patch semiweekly 1 patch Transdermal 2XW RF: 0 docusate sodium [Colace] 100 mg capsule 100 mg PO BID RF: 0 sildenafil [Viagra] 25 mg tablet 25 mg PO DAILY PRN (Reason: other) RF: 0 (DME) Handicap Placard Qty: 1 RF: 0 baclofen 20 mg tablet 20 mg PO BID RF: 0 melatonin 5 mg capsule 5 mg PO DAILY RF: 0 Probiotic 3 billion cell capsule 3,000 mmu cells PO DAILY RF: 0 magnesium 200 mg tablet 200 mg PO DAILY RF: 0 psyllium husk [Metamucil] 0.52 gram capsule 1.04 g PO DAILY PRN (Reason: constipation) Qty: 60 RF: 2 ondansetron HCl [Zofran] 4 mg tablet 4 mg PO Q8H PRN (Reason: nausea and vomiting) Qty: 30 RF: 1 escitalopram oxalate 10 mg tablet 10 mg PO DAILY Qty: 90 RF: 3 Primary Care Provider: Sruthi Erwin Referrals: Sruthi Erwin MD [Primary Care Provider] - 3-5 Days Activity Restrictions/Additional Instructions: Take the Bactrim twice daily as prescribed. If your C. difficile comes back negative, you do not need to fill the vancomycin prescription. If your C. difficile comes back positive fill the vancomycin prescription and start taking it after you are done with the Bactrim. Disposition Disposition: Home, Self Care
[2021-10-30 18:37] LABS: Mucous, Urine 0 SEEN /hpf (<or=2+); Squamous Epithelial Cells - UA 0 SEEN /hpf (0-5)
[2021-10-30 18:45] LABS: AST(SGOT) 37 U/L (15-37); Alanine Aminotransfer ALT/SGPT 45 U/L (16-61); Albumin, Serum 3.7 g/dL (3.2-5.0); Alkaline Phosphatase 94 U/L (45-117); Anion Gap 7 (5-15); BUN 19 mg/dL (7-18); BUN/Creat Ratio 20.9 RATIO (10-20); Calcium,Total 9.2 mg/dL (8.5-10.1); Chloride 106 mmol/L (98-107); Creatinine, Serum 0.91 mg/dL (0.70-1.30); EST Glomerular Filtration Rate 108 mL/min (>60); Est Glom Filt Rate - Afr Amer 130 mL/min (>60); Globulin 3.7 g/dL (2.2-4.2); Glucose 81 mg/dL (74-106); Potassium 4.6 mmol/L (3.5-5.1); Protein, Total 7.4 g/dL (6.4-8.2); Sodium Level 139 mmol/L (136-145)
[2021-10-30 18:46] LABS: Absolute Lymphocyte Count 1.99 X10^3/uL (0.83-4.51); Absolute Neutrophil Count 7.2 X10^3/uL (2.0-7.7); Basophil# 0.03 X10^3/uL; Basophil% 0.3 % (0-1); Eosinophil# 0.52 X10^3/uL; Hematocrit 39.3 % (40-54); Hemoglobin 12.7 g/dL (13.0-16.5); Lymphocyte # 1.99 X10^3/ul (0.83-4.51); Lymphocyte % 19.2 % (19-41); Mean Corp Hgb Conc 32.3 g/dL (32-36); Mean Corpuscular Hgb 28.5 pg (27.0-32.0); Mean Corpuscular Volume 88.1 fL (80-94); Mean Platelet Vol. 10.1 fl (6.2-12.0); Monocyte# 0.65 X10^3/uL; Monocyte% 6.3 % (0-10); NRBC Flagged by Analyzer 0 % (0-5); Neutrophil # 7.16 X10^3/uL (2.7-7.7); Neutrophil % 68.8 % (47-70); Platelet Count 424 K/mm3 (150-450); RBC Distribution Width CV 13.6 % (11.6-14.6); RBC Distribution Width SD 43.9 fl (35.1-43.9); Red Blood Count 4.46 M/mm3 (4.6-6.2); White Blood Count 10.4 K/mm3 (4.4-11.0)
[2021-10-30 18:55] LABS: Color, Urine Yellow (Yellow); Glucose, Dipstick Normal (Normal); Ketone-Dipstick Negative (Negative); Leukocyte Esterase-Dipstick 500 /ul (Negative); Nitrite-Dipstick Positive (Negative); Occult Blood-Urine 50 /ul (Negative); Protein-Dipstick 30 mg/dl (Negative); Urine Bilirubin Dipstick Negative (Negative); Urine Clarity Cloudy (Clear); Urine Urobilinogen Normal (Normal)
[2021-10-30 19:02] LABS: Bacteria 3+ /hpf (None Seen); White Blood Cells >100 SEEN /hpf (0-5)
[2021-10-30 19:04] LABS: Red Blood Cells-Urine 5-10 SEEN /hpf (0-5)
[2021-10-30 21:51] VITALS: BP 136/91; PULSE 89; RESP 16; O2SAT 99
[2021-10-30] MEDS: Smz/Tmp Ds Tablet 1 TABLET PO (21:51)
== END 2021-10-30 21:52 | disposition home or self-care (01) ==
PROVIDERS: Emergency Provider Emergency Medicine; PCP Internal Medicine; Visit Provider Emergency Medicine
DX: N39.0 Urinary tract infection, site not specified (principal); Z87.891 Personal history of nicotine dependence
CPT/HCPCS: 80053; 81001; 85025; 87077; 87086; 87088; 87186; 87493; 99283

== ENCOUNTER 2021-11-06 20:20 | Emergency (ER) | payer OTHER, MEDICARE, MEDICAID, SELFPAY ==
[2021-11-06 20:21] VITALS: BP 169/113; PULSE 117; RESP 18; TEMP 36.9; O2SAT 99; BMI 36.6
--- NOTE | 2021-11-06 21:14 | EDS_ITS ---
HPI HPI - GI History of Present Illness Chief Complaint: GI Bleed Informant: patient Abdominal Pain/Flank Pain Onset: Weeks (2) Context: Gradual Onset Timing: Intermittent Quality: Cramping Location: Epigastric, RUQ and LUQ Worsened by: - (Sitting up) Relieved by: - (Laying flat) Nausea/Vomiting/Emesis GI Symptom: Negative for Nausea and Vomiting Diarrhea/Melena/Hematochezia GI Symptom: Positive for Hematochezia Stool Quality: Positive for BRB per rectum Associated Symptoms Associated Symptoms: Negative for Dysuria, Frequency and Hematuria Narrative Narrative: Patient presents with rectal bleeding that became worse tonight. Patient states that he has had some bleeding from his rectum over the past week but it became severe approximately 2 hours prior to arrival. Patient states he is having bright red blood per rectum. Patient denies any nausea or vomiting. Patient admits to some mild upper abdominal pain. Patient states this has been intermittent over the past 2 weeks. Patient describes it as cramping. Patient states it is better whenever he lays down. Patient was seen here recently and was diagnosed with a urinary tract infection. Patient states he is still taking the Bactrim for the urinary tract infection. Patient also states that he was diagnosed with C. difficile. [facility] Medical History Abdominal pain Alcoholism Anxiety and depression Chronic back pain Chronic constipation Diarrhea GERD (gastroesophageal reflux disease) Hydrocephalus Myelomeningocele Neurogenic bladder Neuropathy Right foot pain Spina bifida Weakness of both lower extremities Home Medications Handicap Placard #1 ea 10/02/18 [Rx Last Taken Unknown] multivitamin 1 cap PO DAILY 10/02/18 [History Last Taken Unknown] oxybutynin 3.9 mg/24 hr semiweekly transdermal patch 1 patch TRANSDERMAL 2XW 10/02/18 [History Last Taken Unknown] polyethylene glycol 3350 17 gram/dose oral powder 17 g PO DAILY g 10/02/18 [History Last Taken Unknown] sildenafil 25 mg tablet 25 mg PO DAILY PRN 10/02/18 [History Last Taken Unknown] baclofen 20 mg tablet 20 mg PO BID 06/15/21 [History Last Taken Unknown] lactobacillus combination no.4 3 billion cell capsule 3,000 mmu cells PO DAILY 06/15/21 [History Last Taken Unknown] magnesium 200 mg tablet 200 mg PO DAILY 06/15/21 [History Last Taken Unknown] melatonin 5 mg capsule 5 mg PO DAILY 06/15/21 [History Last Taken Unknown] psyllium husk 0.52 gram capsule 1.04 g PO DAILY PRN #60 cap 08/30/21 [Rx Last Taken Unknown] escitalopram oxalate 10 mg tablet 10 mg PO DAILY #90 tab 10/26/21 [Rx Last Taken Unknown] sulfamethoxazole-trimethoprim 1 tab PO BID #6 tablet 10/30/21 [Rx Last Taken Unknown] vancomycin 125 mg PO Q6H 10 Days #40 cap 10/30/21 [Rx Last Taken Unknown] Allergy/AdvReac Type Severity Reaction Status Date / Time lactose Allergy Mild Diarrhea Verified 11/06/21 21:19 cefdinir [From Omnicef] Allergy unknown Verified 11/06/21 21:19 cephalexin [From Keflex] Allergy Unknown Verified 11/06/21 21:19 latex Allergy Unknown Verified 11/06/21 21:19 morphine Allergy Unknown Verified 11/06/21 21:19 Family History Father Hypertension Heart disease Arthritis Surgical History bilateral hydocele repair closure of the spine cystourethroscopy estropia repair H/O hernia repair Intracranial shunt Mercado Stoma mitrofanoff placement of [place] removal of thiersch wire revision of shunt S/P TARGETING ACQUISITION OFFICER shunt Status post implantation of artificial urinary sphincter thiersch wire replacement [place] teeth extracted Social History Smoking Status: Never smoker Tobacco: How many years used: 1 how long ago did patient quit smokin alcohol intake: former year quit: 12/02 details: reports recovering alcoholic what type of physical activity do you participate in: aerobics and weight training ROS ROS ED Constitutional Constitutional ED: Reports fever(s) and sweats Eyes Eyes: Denies blurry vision or change in vision ENT ENT ED: Denies rhinorrhea or sore throat Cardiovascular Cardiovascular: Denies chest pain or palpitations Respiratory/Chest Respiratory/Chest: Denies cough or dyspnea Gastrointestinal Gastrointestinal: Reports abdominal pain and diarrhea; Denies nausea or vomiting Genitourinary Genitourinary ED: Denies dysuria or hematuria Musculoskeletal Musculoskeletal: Reports back pain; Denies neck pain Integumentary Denies abscess or rash Neurologic Neurologic: Reports headache(s); Denies weakness Allergic/Immunologic Allergic/Immunologic ED: Denies mouth swelling or urticaria EXAM Physical Exam Const Vital Signs: 11/06/21 20:21 Temperature 98.5 F Temperature Source Temporal Pulse Rate 117 H Respiratory Rate 18 Blood Pressure 169/113 H Blood Pressure Mean 131 Pulse Ox 99 Oxygen Delivery Method Room Air Positive well nourished and well developed General Appearance ED: well developed HEENT Reports moist mucous membranes Neck supple and no JVD Resp normal respiratory effort and clear to auscultation bilaterally Cardio regular rate, regular rhythm and no murmurs GI normal to inspection, nondistended, normoactive bowel sounds and non-distended GI Narrative: Anoscopy was performed. There is no bleeding noted. There is formed brown stool. Auscultation: normoactive bowel sounds Palpation: soft and tender epigastric, LUQ and RUQ; Negative for guarding or rebound tenderness present Extremity normal to inspection General Extremety ED: Negative for edema or tenderness General Extremity: Negative for edema Neuro oriented x3, CN's II-XII intact bilaterally and no sensory deficits noted Sensorium / Orientation: alert Motor Exam: strength 5/5 throughout Psych mental status grossly normal Skin no rashes or lesions noted MDM MDM MDM Narrative Medical decision making narrative: Anoscopy was performed. There is no active bleeding noted anywhere. There is brown stool noted. CBC shows a hemoglobin of 12.7. This was unchanged compared to previous result. PT with INR and PTT were normal. Comprehensive metabolic profile was obtained and was within normal limits. Lipase was normal. Urinalysis shows leukocyte esterase of 100 with 10- 25 white blood cells. Occult blood was 150 with 5-10 red blood cells. Patient was instructed to finish his Bactrim as prescribed. Patient was instructed to follow-up with gastroenterology. Patient and his mother stated that they were able to follow-up with gastroenterology here because of his history of spina bifida. 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 Patient was instructed to follow-up with his primary care physician in 3 to 5 days. Patient and mother understood and were agreeable with the plan. All questions were answered. Lab Data Attestation: I reviewed the patient's lab results. Labs: Laboratory Results - last 24 hr 11/06/21 11/06/21 11/06/21 21:17 21:17 21:17 WBC 9.7 RBC 4.41 L Hgb 12.7 L Hct 38.7 L MCV 87.8 MCH 28.8 MCHC 32.8 RDW Std Deviation 45.7 H RDW Coeff of Levi 14.3 Plt Count 379 MPV 9.9 Immature Gran % (Auto) 0.200 Neut % (Auto) 62.1 Lymph % (Auto) 26.5 [place] % (Auto) 7.9 Eos % (Auto) 3.0 Baso % (Auto) 0.3 Absolute Neuts (auto) 6.0 Absolute Lymphs (auto) 2.57 Nucleated RBC % 0 PT 11.9 INR 0.9 APTT 30.8 Sodium 140 Potassium 4.0 Chloride 107 Carbon Dioxide 25.0 Anion Gap 8 BUN 14 Creatinine 1.16 Estim Creat Clear Calc 106.85 Est GFR (MDRD) Af Amer 98 Est GFR (MDRD) Non-Af 81 BUN/Creatinine Ratio 12.1 Glucose 100 Calcium 8.5 Total Bilirubin 0.50 AST 23 ALT 48 Alkaline Phosphatase 88 Total Protein 6.8 Albumin 3.6 Globulin 3.2 Albumin/Globulin Ratio 1.1 Lipase 84 Urine Color Urine Clarity Urine pH Ur Specific [place] Urine Protein Urine Glucose (UA) Urine Ketones Urine Occult Blood Urine Nitrite Urine Bilirubin Urine Urobilinogen Ur Leukocyte Esterase Urine RBC Urine WBC Ur Squamous Epith Cells Urine Bacteria Urine Mucus 11/06/21 21:54 WBC RBC Hgb Hct MCV MCH MCHC RDW Std Deviation RDW Coeff of Levi Plt Count MPV Immature Gran % (Auto) Neut % (Auto) Lymph % (Auto) [place] % (Auto) Eos % (Auto) Baso % (Auto) Absolute Neuts (auto) Absolute Lymphs (auto) Nucleated RBC % PT INR APTT Sodium Potassium Chloride Carbon Dioxide Anion Gap BUN Creatinine Estim Creat Clear Calc Est GFR (MDRD) Af Amer Est GFR (MDRD) Non-Af BUN/Creatinine Ratio Glucose Calcium Total Bilirubin AST ALT Alkaline Phosphatase Total Protein Albumin Globulin Albumin/Globulin Ratio Lipase Urine Color Yellow Urine Clarity Sl. Cloudy Urine pH 5.0 Ur Specific [place] 1.015 Urine Protein 15 H Urine Glucose (UA) Normal Urine Ketones Negative Urine Occult Blood 150 H Urine Nitrite Negative Urine Bilirubin Negative Urine Urobilinogen Normal Ur Leukocyte Esterase 100 H Urine RBC 5-10 SEEN Urine WBC 10-25 SEEN Ur Squamous Epith Cells 0 SEEN Urine Bacteria RARE Urine Mucus 0 SEEN Discharge Plan Triage Chief Complaint: GI Bleed ED Provider: Alonso John Dx/Rx/DC Orders Clinical Impression: Hematochezia, Spina bifida, Urinary tract infection Instructions: ED Lower GI Bleeding (Stable) Prescriptions: No Action polyethylene glycol 3350 [Miralax] 17 gram/dose powder 17 g PO DAILY RF: 0 multivitamin capsule capsule 1 cap PO DAILY RF: 0 Oxytrol 3.9 mg/24 hr patch semiweekly 1 patch Transdermal 2XW RF: 0 sildenafil [Viagra] 25 mg tablet 25 mg PO DAILY PRN (Reason: other) RF: 0 (DME) Handicap Placard Qty: 1 RF: 0 baclofen 20 mg tablet 20 mg PO BID RF: 0 melatonin 5 mg capsule 5 mg PO DAILY RF: 0 Probiotic 3 billion cell capsule 3,000 mmu cells PO DAILY RF: 0 magnesium 200 mg tablet 200 mg PO DAILY RF: 0 psyllium husk [Metamucil] 0.52 gram capsule 1.04 g PO DAILY PRN (Reason: constipation) Qty: 60 RF: 2 sulfamethoxazole-trimethoprim [sulfamethoxazole-trimethoprim] 1 TABLET tablet 1 tab PO BID Qty: 6 RF: 0 vancomycin 125 mg capsule 125 mg PO Q6H 10 Days Qty: 40 RF: 0 escitalopram oxalate 10 mg tablet 10 mg PO DAILY Qty: 90 RF: 3 Primary Care Provider: Sruthi Erwin Referrals: Nahum Resendiz MD [NON-STAFF] - 5-7 Days Sruthi Erwin MD [Primary Care Provider] - 3-5 Days Disposition Disposition: Home, Self Care
[2021-11-06] MEDS: 0.9% Normal Saline 1,000 ML 1000 ML IV (21:30)
[2021-11-06 21:36] LABS: Absolute Lymphocyte Count 2.57 X10^3/uL (0.83-4.51); Basophil# 0.03 X10^3/uL; Basophil% 0.3 % (0-1); Eosinophil# 0.29 X10^3/uL; Hematocrit 38.7 % (40-54); Hemoglobin 12.7 g/dL (13.0-16.5); Lymphocyte # 2.57 X10^3/ul (0.83-4.51); Lymphocyte % 26.5 % (19-41); Mean Corp Hgb Conc 32.8 g/dL (32-36); Mean Corpuscular Hgb 28.8 pg (27.0-32.0); Mean Corpuscular Volume 87.8 fL (80-94); Mean Platelet Vol. 9.9 fl (6.2-12.0); Monocyte# 0.77 X10^3/uL; Monocyte% 7.9 % (0-10); NRBC Flagged by Analyzer 0 % (0-5); Neutrophil # 6.01 X10^3/uL (2.7-7.7); Neutrophil % 62.1 % (47-70); Platelet Count 379 K/mm3 (150-450); RBC Distribution Width CV 14.3 % (11.6-14.6); RBC Distribution Width SD 45.7 fl (35.1-43.9); Red Blood Count 4.41 M/mm3 (4.6-6.2); White Blood Count 9.7 K/mm3 (4.4-11.0)
[2021-11-06 21:44] LABS: International Normalized Ratio 0.9; Prothrombin Time (Protime)PT. 11.9 SECONDS (11.7-14.9)
[2021-11-06 21:45] LABS: Partial Thromboplast Time 30.8 Seconds (24.1-36.2)
[2021-11-06 21:58] LABS: ALB/GLOB Ratio 1.1 RATIO (0.9-2.4); AST(SGOT) 23 U/L (15-37); Alanine Aminotransfer ALT/SGPT 48 U/L (16-61); Albumin, Serum 3.6 g/dL (3.2-5.0); Alkaline Phosphatase 88 U/L (45-117); Anion Gap 8 (5-15); BUN 14 mg/dL (7-18); BUN/Creat Ratio 12.1 RATIO (10-20); Calcium,Total 8.5 mg/dL (8.5-10.1); Chloride 107 mmol/L (98-107); Creatinine, Serum 1.16 mg/dL (0.70-1.30); EST Glomerular Filtration Rate 81 mL/min (>60); Est Glom Filt Rate - Afr Amer 98 mL/min (>60); Estimated Creatinine Clearance 106.85 ml/min; Globulin 3.2 g/dL (2.2-4.2); Glucose 100 mg/dL (74-106); Lipase 84 U/L (73-393); Protein, Total 6.8 g/dL (6.4-8.2); Sodium Level 140 mmol/L (136-145)
[2021-11-06 22:03] LABS: Mucous, Urine 0 SEEN /hpf (<or=2+); Squamous Epithelial Cells - UA 0 SEEN /hpf (0-5)
[2021-11-06 22:09] LABS: Color, Urine Yellow (Yellow); Glucose, Dipstick Normal (Normal); Ketone-Dipstick Negative (Negative); Leukocyte Esterase-Dipstick 100 /ul (Negative); Nitrite-Dipstick Negative (Negative); Occult Blood-Urine 150 /ul (Negative); Protein-Dipstick 15 mg/dl (Negative); Specific Gravity, Urine 1.015 (1.002-1.030); Urine Bilirubin Dipstick Negative (Negative); Urine Clarity Sl. Cloudy (Clear); Urine Urobilinogen Normal (Normal)
[2021-11-06 22:15] LABS: Bacteria RARE /hpf (None Seen); Red Blood Cells-Urine 5-10 SEEN /hpf (0-5); White Blood Cells 10-25 SEEN /hpf (0-5)
[2021-11-06 22:56] VITALS: RESP 18
== END 2021-11-06 23:08 | disposition home or self-care (01) ==
PROVIDERS: Emergency Provider Emergency Medicine; PCP Internal Medicine; Visit Provider Emergency Medicine
DX: K92.1 Melena (principal); Q05.9 Spina bifida, unspecified; N39.0 Urinary tract infection, site not specified; K59.09 Other constipation; Z79.899 Other long term (current) drug therapy; Z87.891 Personal history of nicotine dependence
CPT/HCPCS: 46600; 80053; 81001; 83690; 85025; 85610; 85730; 96360; 99283; J7030

== ENCOUNTER 2021-12-26 14:20 | Outpatient (CLI) | payer OTHER, MEDICARE, MEDICAID, SELFPAY ==
[2021-12-26 15:42] LABS: Anion Gap 5 (5-15); BUN 13 mg/dL (7-18); Calcium,Total 9.1 mg/dL (8.5-10.1); Chloride 105 mmol/L (98-107); Creatinine, Serum 0.93 mg/dL (0.70-1.30); EST Glomerular Filtration Rate 105 mL/min (>60); Est Glom Filt Rate - Afr Amer 127 mL/min (>60); Glucose 90 mg/dL (74-106); Potassium 4.3 mmol/L (3.5-5.1); Sodium Level 139 mmol/L (136-145)
== END 2021-12-26 23:59 | disposition home or self-care (01) ==
LOC: BIMLAB 14:21
PROVIDERS: PCP Internal Medicine; Visit Provider Internal Medicine
DX: R19.7 Diarrhea, unspecified (principal)
CPT/HCPCS: 36415; 80048

== ENCOUNTER → 2022-03-27 | Outpatient (CLI) | payer MEDICARE, MEDICAID, SELFPAY ==
[2022-03-27 12:25] LABS: Absolute Neutrophil Count 4.9 X10^3/uL (2.0-7.7); Basophil# 0.02 X10^3/uL; Basophil% 0.3 % (0-1); Eosinophil# 0.27 X10^3/uL; Eosinophils% 3.7 % (0-5); Hematocrit 43.1 % (40-54); Hemoglobin 14.4 g/dL (13.0-16.5); Lymphocyte % 20.7 % (19-41); Mean Corp Hgb Conc 33.4 g/dL (32-36); Mean Corpuscular Hgb 31.2 pg (27.0-32.0); Mean Corpuscular Volume 93.3 fL (80-94); Mean Platelet Vol. 9.9 fl (6.2-12.0); Monocyte# 0.55 X10^3/uL; Monocyte% 7.6 % (0-10); NRBC Flagged by Analyzer 0 % (0-5); Neutrophil # 4.89 X10^3/uL (2.7-7.7); Neutrophil % 67.3 % (47-70); Platelet Count 405 K/mm3 (150-450); RBC Distribution Width CV 11.8 % (11.6-14.6); RBC Distribution Width SD 40.3 fl (35.1-43.9); Red Blood Count 4.62 M/mm3 (4.6-6.2); White Blood Count 7.3 K/mm3 (4.4-11.0)
[2022-03-27 12:42] LABS: ALB/GLOB Ratio 1.1 RATIO (0.9-2.4); AST(SGOT) 18 U/L (15-37); Alanine Aminotransfer ALT/SGPT 41 U/L (16-61); Albumin, Serum 3.9 g/dL (3.2-5.0); Alkaline Phosphatase 97 U/L (45-117); Anion Gap 5 (5-15); BUN 11 mg/dL (7-18); BUN/Creat Ratio 10.9 RATIO (10-20); Calcium,Total 9.4 mg/dL (8.5-10.1); Chloride 104 mmol/L (98-107); Creatinine, Serum 1.01 mg/dL (0.70-1.30); EST Glomerular Filtration Rate 95 mL/min (>60); Est Glom Filt Rate - Afr Amer 115 mL/min (>60); Globulin 3.7 g/dL (2.2-4.2); Glucose 84 mg/dL (74-106); Protein, Total 7.6 g/dL (6.4-8.2); Sodium Level 140 mmol/L (136-145)
== END | disposition home or self-care (01) ==
LOC: BIMLAB 10:54
PROVIDERS: PCP Internal Medicine; Referring Provider Internal Medicine; Visit Provider Internal Medicine
DX: I10 Essential (primary) hypertension (principal)
CPT/HCPCS: 36415; 80053; 85025

== ENCOUNTER → 2023-03-26 | Outpatient (CLI) | payer MEDICAID, SELFPAY ==
[2023-03-26 15:38] LABS: Anion Gap 7 (5-15); BUN 26 mg/dL (7-18); BUN/Creat Ratio 17.1 RATIO (10-20); Calcium,Total 9.1 mg/dL (8.5-10.1); Chloride 109 mmol/L (98-107); Creatinine, Serum 1.52 mg/dL (0.70-1.30); EST Glomerular Filtration Rate 59 mL/min (>60); Est Glom Filt Rate - Afr Amer 71 mL/min (>60); Glucose 101 mg/dL (74-106); Potassium 4.7 mmol/L (3.5-5.1); Sodium Level 139 mmol/L (136-145)
== END | disposition home or self-care (01) ==
LOC: BIMLAB 13:55
PROVIDERS: PCP Internal Medicine; Referring Provider Internal Medicine; Visit Provider Internal Medicine
DX: I10 Essential (primary) hypertension (principal)
CPT/HCPCS: 36415; 80048

== ENCOUNTER → 2023-05-21 | Outpatient (CLI) | payer MEDICAID, SELFPAY ==
[2023-05-21 10:09] LABS: Absolute Lymphocyte Count 1.96 X10^3/uL (0.83-4.51); Absolute Neutrophil Count 4.5 X10^3/uL (2.0-7.7); Basophil# 0.03 X10^3/uL; Basophil% 0.4 % (0-1); Eosinophil# 0.55 X10^3/uL; Hematocrit 39.2 % (40-54); Hemoglobin 12.4 g/dL (13.0-16.5); Lymphocyte # 1.96 X10^3/ul (0.83-4.51); Mean Corp Hgb Conc 31.6 g/dL (32-36); Mean Corpuscular Hgb 28.4 pg (27.0-32.0); Mean Corpuscular Volume 89.9 fL (80-94); Mean Platelet Vol. 9.9 fl (6.2-12.0); Monocyte# 0.72 X10^3/uL; Monocyte% 9.2 % (0-10); NRBC Flagged by Analyzer 0 % (0-5); Neutrophil # 4.53 X10^3/uL (2.7-7.7); Neutrophil % 57.9 % (47-70); Platelet Count 372 K/mm3 (150-450); RBC Distribution Width SD 46.2 fl (35.1-43.9); Red Blood Count 4.36 M/mm3 (4.6-6.2); White Blood Count 7.8 K/mm3 (4.4-11.0)
[2023-05-21 10:35] LABS: AST(SGOT) 15 U/L (15-37); Alanine Aminotransfer ALT/SGPT 26 U/L (16-61); Albumin, Serum 3.5 g/dL (3.2-5.0); Alkaline Phosphatase 104 U/L (45-117); Anion Gap 10 (5-15); BUN 18 mg/dL (7-18); BUN/Creat Ratio 19.9 RATIO (10-20); Calcium,Total 8.5 mg/dL (8.5-10.1); Chloride 110 mmol/L (98-107); Creatinine, Serum 0.91 mg/dL (0.70-1.30); EST Glomerular Filtration Rate 107 mL/min (>60); Est Glom Filt Rate - Afr Amer 129 mL/min (>60); Globulin 3.5 g/dL (2.2-4.2); Glucose 88 mg/dL (74-106); Potassium 3.6 mmol/L (3.5-5.1); Sodium Level 143 mmol/L (136-145)
== END | disposition home or self-care (01) ==
PROVIDERS: PCP Internal Medicine; Referring Provider Podiatrist; Visit Provider Podiatrist
DX: L03.115 Cellulitis of right lower limb (principal)
CPT/HCPCS: 36415; 80053; 85025; 87070; 87077; 87186; 87205